=== PATIENT | female | born 1995 | race Caucasian/White ===

== ENCOUNTER 2018-03-31 19:07 | Emergency (ER) | payer OTHER ==
[~2018-03-31] VITALS: Ht 175.3 cm; Wt 63.4 kg
[2018-03-31 19:10] VITALS: Ht 175.3 cm; Wt 63.4 kg
--- NOTE | 2018-03-31 19:28 | EMERGENCY ROOM VISIT NOTE ---
History First contact with patient: 19:13 Chief Complaint: ALCOHOL OVERDOSE Stated Complaint: VOMITING, WEAKNESS History of Present Illness The patient is a 22 year old female who presents to the Emergency Room via private vehicle, ambulatory, with her friends, with complaints of acute alcohol intoxication. 30 minutes ago, the patient's friends state the patient was not responding to their questions, and was actively vomiting into the toilet. They states she was vomiting and orange color but became concerned because they do not believe she was drinking anything that was orange. The patient has currently no concerns or complaints. She apparently went missing for approximately 30 minutes, and the patient's friends state they are uncertain who she was with or how much she drank in that timeframe. Patient denies any drug use. She admits to drinking 4-5 mixed drinks since approximately 1:00 today, but is uncertain if she has had any other alcohol since that time. She was drinking vodka with Pepsi and Gatorade. She denies any trauma, head injury , confusion, headache, dizziness, abdominal pain, chest pain, dyspnea, or other concerning symptoms. Review of Systems A complete 10 point review of systems was reviewed with the patient with pertinent positives and negatives as per history of present illness. All else were negative. Past Medical/Surgical History Anxiety, depression Social History Smoking Status: Never Smoker Smokeless Tobacco Use: No Alcohol Use: occasionally Drug Use: none Marital Status: single Housing Status: lives with friends Occupation Status: [employer] student Current/Historical Medications Scheduled Bupropion Hcl (Wellbutrin Xl), 150 MG PO QPM Escitalopram (Lexapro), Unknown Dose PO QAM Allergies Suprax Physical Exam Vital Signs Date Time Temp Pulse Resp B/P (MAP) Pulse Ox O2 Delivery O2 Flow Rate FiO2 03/31/18 20:39 85 22 86/47 99 Room Air 03/31/18 19:10 36.5 112 18 104/68 95 Room Air Physical Exam VITALS: Vitals are noted on the nurse's note and reviewed by myself. Vital signs stable. GENERAL: This is a 22-year-old white female, awake, alert, oriented, cooperative , appears to be visibly intoxicated, smells of ETOH. SKIN: The skin was without erythema, edema, or bruising. HEAD: Normocephalic atraumatic. EARS: External auditory canals clear. No hemotympanum. EYES: Pupils equal round and reactive to light and accommodation. NOSE: No deformities noted. MOUTH: No loose or chipped teeth. NECK: No cervical spine tenderness. HEART: Regular rate and rhythm without murmurs gallops or rubs. LUNGS: Clear to auscultation bilaterally without wheezes, rales or rhonchi. ABDOMEN: Soft, nontender. MUSCULOSKELETAL: Full range of motion throughout. Strength intact throughout. NEURO: Patient was alert and oriented to person place and time. Speech slurred. Gross sensation intact. Patient cooperative with examiner. Medical Decision & Procedures Laboratory Results 03/31/18 19:30 Test 03/31/18 19:30 Anion Gap 10.0 mmol/L (3-11) Est Creatinine Clear Calc Drug Dose 119.8 ml/min Estimated GFR () 133.0 Estimated GFR (Non- 114.7 BUN/Creatinine Ratio 9.6 (10-20) Calcium Level 8.2 mg/dl (8.5-10.1) Human Chorionic Gonadotropin, Qual NEG (NEG) Ethyl Alcohol mg/dL 249.9 mg/dl (0-3) ED Course Patient was seen and evaluated by myself. Labs were collected. The patient is upright, awake, alert, and talkative. Her friends remained at bedside throughout her stay. Patient's medical alcohol was found to be elevated at 249.9 mg/dL. Patient was monitored in the emergency department for approximately 1.5 hours. The patient eventually was awoken and educated on today's visit. They were encouraged to refrain from heavy drinking. All labs and diagnostics were reviewed. The patient was able to tolerate PO fluids prior to discharge. Patient was discharged home with her friends, who agreed to accept responsibility to monitor the patient tonight. Medical Decision Given the patient's presentation and exam findings, I did elect to perform the above-mentioned workup. The patient presents today visibly intoxicated. The patient was monitored constantly throughout entire stay in the emergency setting. Medical alcohol level was elevated significantly at 249.9 mg/dL. After a lengthy stay in the Emergency Department the patient was deemed appropriate for discharge. Patient was discharged home with sober friends to monitor her overnight. In the evaluation and treatment of this patient, the following differential diagnoses were considered: Hypoglycemia, Barbiturate Toxicity, Benzodiazepine Toxicity, Depression and Suicidality, Diabetic Ketoacidosis, Encephalitis, Ethylene Glycol Toxicity, Meningitis, Metabolic Acidosis, Opioid Toxicity, CVA, TIA, Intracranial Abnormality, Acute Psychosis, Amongst Others. The chart was completed utilizing [employer] Speech voice recognition software. Grammatical errors, random word insertions, pronoun errors, and incomplete sentences are an occasional consequence of this system due to software limitations, ambient noise, and hardware issues. Any formal questions or concerns about the content, text, or information contained within the body of this dictation should be directly addressed to the provider for clarification. Medication Reconcilliation Current Medication List: was personally reviewed by me Blood Pressure Screening Patient's blood pressure: Low blood pressure The patient reports history of hypotension at baseline. She is not dizzy, lightheaded, and is acting appropriately. Her friends agree to monitor for concerning signs/symptoms. Impression Primary Impression: Alcohol use with intoxication Departure Information Dispostion Home / Self-Care Condition GOOD Referrals No Doctor, Assigned (PCP) [facility] Patient Instructions ED Alcohol Intoxication, [facility] Additional Instructions You were seen in the emergency department today for acute alcohol use with intoxication. Labs did not reveal any obvious concerning abnormalities. No more alcohol today. Drink plenty of fluids and stay well-hydrated. Acetaminophen(Tylenol) may be used for fever or pain. Use 1000mg every six hours as needed. Avoid using more than 3000mg in a 24 hour period. You should be monitored by a sober friend or family member for the next 8-10 hours. As discussed, based on the alcohol level here in the emergency department, he will not be completely sober for this length of time. Return to the ED for worsening vomiting, unresponsiveness, confusion, fall or trauma, or other concerning symptoms.
[2018-03-31 20:06] LABS: CALCIUM 8.2 mg/dl (8.5-10.1); CREATININE 0.75 mg/dl (0.60-1.20); POTASSIUM 3.9 mmol/L (3.5-5.1)
[2018-03-31] MEDS ORDERED: BUPRTAB PO (20:07)
[2018-03-31] MEDS ORDERED: ESCI10TA17 PO (20:08)
[2018-03-31 20:59] VITALS: BP 86/47; PULSE 85; TEMP 36.5; O2SAT 99
== END 2018-03-31 21:00 | disposition home or self-care (01) ==
LOC: C.EDB 19:08 → C.EDC 21:00
DX: F10.929 Alcohol use, unspecified with intoxication, unspecified (principal); F32.9 Major depressive disorder, single episode, unspecified; Z79.899 Other long term (current) drug therapy; Z88.8 Allergy status to other drugs, medicaments and biological substances